=== PATIENT | female | born 1945 | race Caucasian/White ===

== ENCOUNTER 2021-02-09 11:51 | Emergency (ER) | payer OTHER, MEDICARE ==
[2021-02-09 12:10] VITALS: TEMP 98; BMI 22.5
[2021-02-09] MEDS ORDERED: SODIUM CHLORIDE 500 ML IV STA (12:57)
[2021-02-09 13:26] LABS: BASO % 0.5 % (0-2.0); EOS % 1.3 % (0-4.5); HEMATOCRIT 27.1 % (32.4-45.2); HEMOGLOBIN 8.9 GM/dL (10.7-15.3); LYMPH % 16.2 % (8-40); MCH 29.6 pg (25.7-33.7); MCHC 32.9 g/dl (32.0-36.0); MEAN CELL VOLUME 90.1 fl (80-96); MONO % 7.9 % (3.8-10.2); NEUT % 74.1 % (42.8-82.8); PLATELET COUNT 351 10^3/uL (134-434); RBC 3.01 M/mm3 (3.60-5.2); RDW 15.7 % (11.6-15.6); WHITE BLOOD COUNT 10.3 K/mm3 (4.0-10.0)
[2021-02-09 13:55] LABS: CHLORIDE 106 mmol/L (98-107); SODIUM 142 mmol/L (136-145)
[2021-02-09 13:57] LABS: CALCIUM 9.5 mg/dL (8.5-10.1)
[2021-02-09 13:58] LABS: ANION GAP 6 MMOL/L (8-16); CO2 30 mmol/L (21-32); GLUCOSE,RANDOM 89 mg/dL (74-106)
[2021-02-09 14:01] LABS: CREATININE 0.9 mg/dL (0.55-1.3); SGOT/AST 26 U/L (15-37); SGPT/ALT 26 U/L (13-61)
[2021-02-09 14:02] LABS: BILIRUBIN,TOTAL 0.5 mg/dL (0.2-1); TOT PROT 7.1 g/dl (6.4-8.2)
[2021-02-09 14:04] LABS: ALK PHOS 68 U/L (45-117)
[2021-02-09 14:06] LABS: N-TERMINAL BNP 571.8 pg/ml (5-125)
[2021-02-09 16:48] VITALS: BP 156/84; PULSE 97
== END 2021-02-09 16:45 | disposition home or self-care (01) ==
LOC: JER 11:51
PROC: 3E0337Z Introduction of Electrolytic and Water Balance Substance into Peripheral Vein, Percutaneous Approach (ICD-10-PCS; principal; 2021-02-09)
DX: R06.02 Shortness of breath (principal); R05.9 Cough, unspecified
CPT/HCPCS: 36415; 71046-TC-FY; 71275-TC; 80053; 83880; 84484; 85025; 85379; 93005; 93010; 99285-25; C9803; Q9967; U0003; U0005